=== PATIENT | female | born 2000 | race Two or more races ===

== ENCOUNTER 2021-01-05 07:13 | Emergency (ER) | payer OTHER, SELFPAY ==
[~2021-01-05] VITALS: Ht 160 cm; Wt 57.4 kg
[2021-01-05] MEDS ORDERED: DEXAMETHASONE 4 MG/ML, 1ML PO ONE (07:30)
[2021-01-05 07:32] VITALS: BP 118/72
[2021-01-05] MEDS ORDERED: DEXAMETHASONE 4 MG/ML, 1ML ONE ×2 (07:37→07:39)
== END 2021-01-05 08:10 | disposition home or self-care (01) ==
LOC: ED 08:00
DX: J02.0 Streptococcal pharyngitis (principal)
CPT/HCPCS: 99283; J1100

== ENCOUNTER 2021-02-10 12:09 | Emergency (ER) | payer OTHER ==
[~2021-02-10] VITALS: Ht 160 cm; Wt 58.0 kg
--- NOTE | 2021-02-10 12:26 | NUR ---
PT C/O OF PAIN IN RIGHT BREAST. STATES INGROWN HAIR STARTED ON FRIDAY AND PT PULLED IT OUT AND IT BEGAN TO FILL WITH PUSS AND SAYS SHE THINKS IT BEEN INFECTED. BREAST NOTED TO BE RED AND TENDER AROUND AREOLAR.
[2021-02-10] MEDS ORDERED: LIDOCAINE 1%-EPI 1:100K, 20ML ONE (16:00)
--- NOTE | 2021-02-10 16:18 | NUR ---
PT OFF UNIT IN IMAGING Addendum: 02/10/21 at 1619 by [email or web address] OFF UNIT IN IR
[2021-02-10 17:21] VITALS: BP 109/65
--- NOTE | 2021-02-11 11:08 | NUR ---
TP RN: MICRO CALLED REPORTING MRSA +. PER DR.VAN POLLARD PT PROVIDED W/ CORRECT PRESCRIPTION FOR INFT.
== END 2021-02-10 17:23 | disposition home or self-care (01) ==
LOC: ED 13:58
DX: N61.1 Abscess of the breast and nipple (principal)
CPT/HCPCS: 10060; 19020; 76642; 87070; 87077; 87147; 87186; 87205; 99285

== ENCOUNTER 2021-04-20 16:18 | Emergency (ER) | payer OTHER ==
[~2021-04-20] VITALS: Ht 162.6 cm; Wt 62.2 kg
[2021-04-20 16:30] VITALS: BP 116/80
--- NOTE | 2021-04-20 16:43 | NUR ---
PT REC'VD DISCHARGE INSTRUCTIONS AND EDUCATION. PT AMBUALTED TO DC AREA, STEADY GAIT.
--- NOTE | 2021-04-20 16:46 | NUR ---
PT HAD NO FURTHER QUESTIONS.
== END 2021-04-20 17:01 | disposition home or self-care (01) ==
LOC: ED 16:48
DX: Z48.01 Encounter for change or removal of surgical wound dressing (principal)
CPT/HCPCS: 99281